=== PATIENT | female | born 1940 | race Caucasian/White ===

== ENCOUNTER 2017-07-10 09:36 | Emergency (ER) | payer MEDICARE, BC ==
[2017-07-10 10:10] LABS: Urine Bilirubin Negative (NEGATIVE); Urine Blood 250 /ul (NEGATIVE); Urine Ketone 5 mg/dL (NEGATIVE); Urine Nitrite Negative (NEGATIVE); Urine Protein 30 mg/dL (NEGATIVE); Urine Specific Gravity 1.025 SP.GR. (1.005-1.010); Urine Urobilinogen Normal (NORMAL)
[2017-07-10 10:20] LABS: Urine Appearance Clear; Urine Bacteria 2+; Urine Color Yellow; Urine Renal Epithelial Cell Moderate - 2+ /hpf; Urine WBC 25-50 /hpf (0-5)
--- NOTE | 2017-07-10 10:49 | ERNOTE ---
ER Female HPI Date of Service: 07/10/17 Stated Complaint: UTI Presenting Symptoms: dysuria, other - Complains of pelvic pressure and discomfort throughout the urination process. Time Seen by Provider: 07/10/17 10:01 Source: patient Exam Limitations: no limitations Immunizations: IMMUNIZATION HX Immunizations Up to Date Yes History of Influenza Vaccine Yes Hx Pneumococcal Vaccination Yes Allergies/Adverse Reactions: Allergies No Known Allergies Allergy (Unverified 07/10/17 10:50) Home Medications: HOME MEDICATIONS Ciprofloxacin HCl [Cipro] 500 mg PO BID 5 Days #10 tablet 07/10/17 [Last Taken Unknown] - History of Present Illness Narrative: States she has noticed over the past few days discomfort with urination. States she gets UTIs 4-5 times yearly. Denies any trauma or hematuria. States she had 5 days of diarrhea last week. Timing: Present: getting worse Quality: Present: moderate Onset Location: Present: suprapubic, urethral Radiation: Present: none Prior Abdominal Problems: Present: none Sexual [place] History: Present: not active Modifying Factors - (Worsens): Present: urinating Associated Symptoms: Present: denies symptoms Review of Systems - Narrative Narrative: See HPI Denies any allergies or kidney problems. - Review of Systems Constitutional: Present: other - 5 days of diarrhea. EYE: Present: no symptoms reported Respiratory: Present: no symptoms reported Cardiology: Present: no symptoms reported Gastrointestinal/Abdominal: Present: no symptoms reported Genitourinary: Present: dysuria, decreased urinary output, other - Suprapubic tenderness Musculoskeletal: Present: no symptoms reported Skin: Present: no symptoms reported Neurological: Present: no symptoms reported - Patient's Past Medical History Patient History - Medical: GERD, Hypothyroidism, Other Patient History - Cardiac/Respiratory: Hypertension, Other Patient History - Cancer: Skin Patient History - Surgical Procedures: Appendectomy, Hysterectomy Patient History - Other: None - Social History Living Situations: spouse Psych History: No pertinent hx Smoking Status: Never smoker Have you smoked in the past 12 months: No Do you dip or chew tobacco: No Alcohol Use: none Drug Use: none - Immunizations Immunizations Up to Date: Yes Hx Pneumococcal Vaccination: Yes History of Influenza Vaccine: Yes Physical Exam - Physical Exam General Appearance: Present: wd/wn, alert, no apparent distress, other - No signs of confusion Respiratory: Present: no respiratory distress Gastrointestinal/Abdominal: Present: normal bowel sounds, nondistended, soft, other - Mild suprapubic fullness with palpation Back Exam: Present: no CVA tenderness Neurological Exam: Present: alert, oriented, normal mood/affect Skin Exam: Present: normal color, warm/dry ED Progress - Results and Orders Patient's Lab Results:: I have reviewed the patient's lab results. - Vital Signs Patient's Vital Signs:: I have reviewed the patient's vital signs. Vital Signs: Vital Signs 07/10/17 09:42 Temperature 36.9 C Pulse Rate 75 Respiratory 12 Rate Blood Pressure 177/72 O2 Sat by Pulse 96 Oximetry - Progress/Reassessment Chief Complaint: Genitourinary Problem Progress Note-Subjective: 07/10/17 10:45 No current discomfort when not urinating. Currently pain free. 07/10/17 10:45 Departure Clinical Impression: UTI (urinary tract infection) Qualifiers: Urinary tract infection type: site unspecified Hematuria presence: with hematuria Qualified Code(s): N39.0 - Urinary tract infection, site not specified - Departure Disposition: Home Follow Up Needed Condition: Good Instructions: Urinary Tract Infection, Adult, [id number] Additional Instructions: Take the cipro as instructed and follow up with family provider for recheck of urine in 2-3 days. If you worsen return to ER. Prescriptions: Ciprofloxacin HCl [Cipro] 500 mg PO BID 5 Days #10 tablet
[2017-07-10 11:13] VITALS: BP 117/66
== END 2017-07-10 10:53 | disposition home or self-care (01) ==
LOC: EDBD → ER 09:36
DX: N39.0 Urinary tract infection, site not specified (principal); Z85.828 Personal history of other malignant neoplasm of skin